=== PATIENT | female | born 1965 | race Caucasian/White ===

== ENCOUNTER → 2016-07-17 | Outpatient (CLI) | payer BC ==
--- NOTE | 2016-07-17 17:28 | CT ---
EXAMINATION TYPE: CT abdomen pelvis w con DATE OF EXAM: 07/17/2016 5:19 PM COMPARISON: 02/14/2015 HISTORY: Right lower quadrant pain with history of hernia repair. CT DLP: 1631 mGycm Automated exposure control for dose reduction was used. TECHNIQUE: Helical acquisition of images was performed from the lung bases through the pelvis. CONTRAST: Performed with Oral Contrast and with IV Contrast, patient injected with 100 mL of Omnipaque 300. FINDINGS: Lung bases are clear. There is a moderate hiatal hernia. There is no pleural effusion. Liver spleen pancreas gallbladder appear normal. Bile ducts are not dilated. There is no adrenal mass . Kidneys show satisfactory contrast opacification. There is no hydronephrosis. There is no retroperi toneal adenopathy. There is no ascites. I see no intestinal wall thickening. There are no dilated loo ps. There is a 3 cm cyst on the right ovary. Bladder distends smoothly. There is no sign of pelvic ly mphadenopathy. There is no evidence of a hernia. I see no bony destructive process. There is no sign of appendicitis. IMPRESSION: THERE IS A MODERATE-SIZED HIATAL HERNIA THAT IS SMALLER THAN OLD EXAM OF 02/14/2015. NO SIGN OF ACUTE ABDOMEN AND PELVIS. THERE IS A RIGHT OVARIAN CYST THAT IS NEW COMPARED TO OLD EXAM.
== END ==
LOC: RADCTMAIN 16:52
PROVIDERS: ATTEND Surgery
DX: K44.9 Diaphragmatic hernia without obstruction or gangrene (principal); N83.201 Unspecified ovarian cyst, right side
CPT/HCPCS: 74177; Q9967

== ENCOUNTER → 2016-07-22 | Outpatient (CLI) | payer BC ==
--- NOTE | 2016-07-23 08:10 | US ---
EXAMINATION TYPE: US thyroid st tissue head/neck DATE OF EXAM: 07/22/2016 4:17 PM COMPARISON: NONE CLINICAL HISTORY: E04.9 ENLARGED THYROID. Enlarged thyroid/ pt has no known thyroid problems at this time GLAND SIZE: Right Lobe: 3.8 x 1.0 x 1.5 cm Overall Parenchyma: homogenous Left Lobe: 3.3 x 1.0 x 1.7 cm Overall Parenchyma: homogeneous Isthmus Thickness: 0.2 cm NODULES RIGHT: # of nodules measured on right: 0 LEFT: # of nodules measured on left: 0 ISTHMUS: # of nodules measured in the isthmus: 0 Bilateral neck scanned, no evidence of lymphadenopathy/ Thyroid appeared wnl bilaterally IMPRESSION: 1. Normal thyroid ultrasound.
== END | disposition home or self-care (01) ==
LOC: RADUSWWP 16:04
PROVIDERS: ATTEND Obstetrics & Gynecology
DX: E04.9 Nontoxic goiter, unspecified (principal)
CPT/HCPCS: 76536

== ENCOUNTER → 2016-07-27 | Outpatient (CLI) | payer BC ==
--- NOTE | 2016-07-27 10:52 | FL ---
EXAMINATION TYPE: FL barium swallow DATE OF EXAM: 07/27/2016 10:45 AM LIMITED ESOPHAGRAM: CLINICAL HISTORY: History of Miki fundoplication surgery September 2015 presents with recurrent epigast yudith pain. TECHNIQUE: Limited esophagram is performed utilizing 20-30 oz of barium. A total of 24 seconds of fl uoroscopic time was utilized during procedure. COMPARISON: Upper GI study September 17, [address] abdomen and pelvis July 17, 2016.. FINDINGS: The patient drank oral contrast. There is good flow of contrast along the course of the esophagus. There is good flow of contrast through diaphragmatic hiatus into stomach. There is howev er recurrent small to moderate-sized fixed hiatal hernia above the diaphragmatic hiatus. No contrast extravasation to suggest leak is seen. IMPRESSION: New Recurrent small to moderate size hiatal hernia.
== END | disposition home or self-care (01) ==
LOC: RADFLWHC 10:00
PROVIDERS: ATTEND Surgery
DX: K44.9 Diaphragmatic hernia without obstruction or gangrene (principal); K21.9 Gastro-esophageal reflux disease without esophagitis
CPT/HCPCS: 74220

== ENCOUNTER 2016-08-06 11:01 | Day surgery (SDC) | payer BC ==
[2016-08-03 14:49] VITALS: BMI 42.0
[~2016-08-06 11:01] MED LIST: LACTATED RINGERS 1,000 ML IV SCH; LIDOCAINE 1% 20 ML VIAL (10MG/ML) FOR IV START INTRADERMA PRN
[2016-08-06 12:21] VITALS: RESP 18; TEMP 97.8
[2016-08-06] MEDS ORDERED: MIDAZOLAM 2 MG/2 ML VIAL ONE (12:33)
[2016-08-06] MEDS ORDERED: fentaNYL (PF) 50 MCG/ML 2 ML AMP ONE (12:33)
[2016-08-06] MEDS ORDERED: PROPOFOL 10 MG/ML 20 ML VIAL IV ONE (12:33)
--- NOTE | 2016-08-06 12:35 | P.GSHP ---
History of Present Illness H&P Date: 08/06/16 Chief Complaint: GERD This a 51-year-old female who presents today for EGD. She's had issues with dysphagia. Her recent esophagram was reviewed and she the patient may have a small recurrent hiatal hernia versus a slipped fundal plication. - Constitutional Constitutional: Reports as per HPI Past Medical History Past Medical History: CVA/TIA, GERD/Reflux, Hyperlipidemia Additional Past Medical History / Comment(s): hx TIA-no effects, heart murmer, occ palpitations, hx hiatal hernia, History of Any Multi-Drug Resistant Organisms: None Reported Past Surgical History: Breast Surgery, Section, Hernia Repair Additional Past Surgical History / Comment(s): 09/17/15 Laparoscopic pawel fundoplication, dylan breast reduction, strangulated hernia around intestine Past Anesthesia/Blood Transfusion Reactions: No Reported Reaction Past Psychological History: No Psychological Hx Reported Additional Psychological History / Comment(s): . Smoking Status: Never smoker Past Alcohol Use History: Rare Past Drug Use History: None Reported - Past Family History Mother Family Medical History: No Reported History Additional Family Medical History / Comment(s): . Father Additional Family Medical History / Comment(s): Father has "heart problems". He is 81 yrs old. Medications and Allergies Home Medications Medication Instructions Recorded Confirmed Type Multivitamins, Thera [Multivitamin 1 tab PO DAILY 08/16/15 08/03/16 History (formulary)] Atorvastatin [Lipitor] 40 mg PO HS 08/03/16 08/03/16 History Allergies Allergy/AdvReac Type Severity Reaction Status Date / Time No Known Allergies Allergy Verified 08/03/16 14:41 Surgical - Exam Vital Signs Temp Pulse Resp BP Pulse Ox 97.8 F 83 18 138/74 98 08/06/16 12:20 08/06/16 12:20 08/06/16 12:20 08/06/16 12:20 08/06/16 12:20 - General well developed, no distress - Eyes PERRL - ENT normal pinna - Neck no masses - Respiratory normal expansion - Cardiovascular Rhythm: regular - Abdomen Abdomen: soft, non tender Assessment and Plan Plan: GERD, dysphagia. We'll perform EGD.
--- NOTE | 2016-08-06 12:42 | P.OP ---
Date of Procedure: 08/06/16 Preoperative Diagnosis: . GERD Dysphagia Postoperative Diagnosis: Mild antral gastritis Slipped fundal plication Procedure(s) Performed: EGD Anesthesia: MAC Surgeon: Esa Luis Pathology: other (Antrum) Condition: stable Disposition: PACU Description of Procedure: The patient's placed on the endoscopy table in the lateral position. She received IV sedation. The gastroscope some placed oropharynx and passed into the esophagus and into the stomach. The scope was then placed through the pylorus. In the first and second portion of the duodenum appeared normal. Scope was then brought back and the antrum and this appeared mildly inflamed. A biopsy was performed. Scope was then retroflexed remainder stomach appeared normal. The patient's fundoplication appeared to be displaced and around the fundal portion of the stomach. There was a small gastric pouch above the plication. The GI GE junction was at 40 cm. There is no evidence of a hiatal hernia. The distal esophagus appeared minimally inflamed the proximal esophagus appeared normal. Scope was withdrawn for patient.
[2016-08-06 13:17] VITALS: BP 133/86; PULSE 80
== END 2016-08-06 13:40 | disposition home or self-care (01) ==
LOC: ORWHC2ENDO 11:01
PROVIDERS: ATTEND Surgery
DX: K29.50 Unspecified chronic gastritis without bleeding (principal); K91.89 Other postprocedural complications and disorders of digestive system; K21.9 Gastro-esophageal reflux disease without esophagitis; R13.10 Dysphagia, unspecified; Z79.899 Other long term (current) drug therapy; Z79.82 Long term (current) use of aspirin; Z86.73 Personal history of transient ischemic attack (TIA), and cerebral infarction without residual deficits
CPT/HCPCS: 81025; 88305; 88342; 43239; J2250; J3010; J2704

== ENCOUNTER 2016-09-04 08:34 | Inpatient (IN) | payer BC ==
[2016-08-27 08:29] VITALS: BMI 43.0
[~2016-09-04 08:34] MED LIST changes: +DEXAMETHASONE SOD PHOSPHATE 10 MG/ML 1 ML VIAL IV ONE; +HEPARIN SODIUM,PORCINE 5,000 UNIT/ML 1 ML VIAL SQ ONE; -LIDOCAINE 1% 20 ML VIAL (10MG/ML) FOR IV START INTRADERMA PRN; +ONDANSETRON 4 MG/2 ML VIAL IVP ONE; +ceFAZolin 2 GM in SODIUM CHLORIDE 0.9% 100 ML IVPB ONE
--- NOTE | 2016-09-04 08:52 | P.GSHP ---
History of Present Illness H&P Date: 09/04/16 Chief Complaint: Dysphagia, recurrent hiatal hernia 's is a 51-year-old female who presents today for laparoscopic repair of hiatal hernia. She's had issues with dysphagia. Her recent esophagram shows evidence of a hiatal hernia. - Constitutional Constitutional: Reports as per HPI Past Medical History Past Medical History: CVA/TIA, GERD/Reflux, GI Bleed, Hyperlipidemia Additional Past Medical History / Comment(s): hiatal hernia with pawel fundloplication, -internal hemorrhoids and a few diverticuli, TIA, NO RESIDUAL EFFECTS History of Any Multi-Drug Resistant Organisms: None Reported Past Surgical History: Breast Surgery, Section, Hernia Repair Additional Past Surgical History / Comment(s): 09/17/15 Laparoscopic pawel fundoplication, breast reduction, 2008 strangulated hernia around intestine, recent EGD, colonoscopy. Past Anesthesia/Blood Transfusion Reactions: No Reported Reaction Past Psychological History: No Psychological Hx Reported Additional Psychological History / Comment(s): . Smoking Status: Never smoker Past Alcohol Use History: Rare Past Drug Use History: None Reported - Past Family History Mother Family Medical History: No Reported History Additional Family Medical History / Comment(s): . Father Additional Family Medical History / Comment(s): Father has "heart problems". He is 81 yrs old. Medications and Allergies Home Medications Medication Instructions Recorded Confirmed Type Multivitamins, Thera [Multivitamin 1 tab PO DAILY 08/16/15 08/27/16 History (formulary)] Atorvastatin [Lipitor] 40 mg PO HS 08/03/16 08/27/16 History Allergies Allergy/AdvReac Type Severity Reaction Status Date / Time No Known Allergies Allergy Verified 08/27/16 08:26 Surgical - Exam - General well developed, no distress - Eyes PERRL - ENT normal pinna - Neck no masses - Respiratory normal expansion - Cardiovascular Rhythm: regular - Abdomen Abdomen: soft, non tender Assessment and Plan Plan: Hiatal hernia. We'll perform laparoscopic repair.
[2016-09-04] MEDS ORDERED: LIDOCAINE 1% 20 ML VIAL (10MG/ML) FOR IV START INTRADERMA ONE (09:00)
[2016-09-04] MEDS ORDERED: fentaNYL (PF) 50 MCG/ML 2 ML AMP ONE (09:13)
[2016-09-04] MEDS ORDERED: MIDAZOLAM 2 MG/2 ML VIAL ONE (09:13)
[2016-09-04] MEDS ORDERED: SUCCINYLCHOLINE CHLORIDE 100 MG/5 ML SYR IV ONE (09:13)
[2016-09-04] MEDS ORDERED: KETOROLAC 30 MG/ML 1 ML VIAL ONE (09:13)
[2016-09-04] MEDS ORDERED: LIDOCAINE 1% INJ 10MG/ML (20 ML MDV) ONE (09:13)
[2016-09-04] MEDS ORDERED: GLYCOPYRROLATE 0.2 MG/ML 2 ML VIAL ONE (09:13)
[2016-09-04] MEDS ORDERED: NEOSTIGMINE 1 MG/ML 10 ML VIAL ONE (09:13)
[2016-09-04] MEDS ORDERED: PROPOFOL 10 MG/ML 20 ML VIAL IV ONE (09:13)
[2016-09-04] MEDS ORDERED: HYDROmorphone (PF) 1 MG/ML ONE (09:13)
[2016-09-04] MEDS ORDERED: ROCURONIUM BROMIDE 10 MG/ML 10 ML VIAL IV ONE (09:13)
[2016-09-04] MEDS ORDERED: BUPIVACAIN-EPI 0.25%-1:200,000 30 ML VIAL SQ ONE (09:40)
[2016-09-04] MEDS ORDERED: METHYLENE BLUE 50 MG/10 ML AMPUL IRRIGATION ONE (10:15)
--- NOTE | 2016-09-04 10:41 | P.OP ---
Date of Procedure: 09/04/16 Preoperative Diagnosis: Dysphagia Recurrent hiatal hernia Postoperative Diagnosis: Dysphagia Recurrent hiatal hernia Procedure(s) Performed: Laparoscopic Harinder fundal plication with mesh repair of hiatal hernia and 180 wrap Implants: Anesthesia: KARRIA Surgeon: Esa Luis Estimated Blood Loss (ml): 10 Pathology: none sent Condition: stable Disposition: PACU Indications for Procedure: Operative Findings: Description of Procedure: The patient's placed the operative table in the supine position. She received general anesthesia. Her abdomen was prepped and draped usual sterile fashion. The patient's placed in dorsal lithotomy position. The skin incision sites were anesthetized 1% local Xylocaine. Using 11 blade the skin was incised in the left. Local area then using a 5 mm optical trocar under direct visitation the perineal cavity was entered and then the abdomen was insufflated and then the laparoscope was then placed back into the perineal cavity. Next a 5 ohmmeter trocar was placed in the right epigastric, right lateral, left lateral and then a 8 mm trocar was placed in the left epigastric position. The left lateral lobe of liver was retracted. The patient appears fundoplication wrap. There was a recurrent hiatal hernia with the fundal plication wrap partially above the diaphragm. This point using the Harmonic scissors the fundal plication Wrap was taken down and then the ann-marie were dissected the right left ann-marie were fully dissected and then the stomach was insufflated with 1000 mL of methylene blue normal saline. There is known to extravasation. The hiatal hernia was then closed using 2-0 Ethibond suture. And then using the bile a [place] mesh the hernia repair was buttressed the mesh was secured with 2-0 Ethibond suture. The fundoplication wrap was converted to 180 wrap. The wrap was secured with 2-0 Ethibond suture. There was no injury seen to the stomach or esophagus. The abdomen was irrigated. The trochars withdrawn. The skin was closed interrupted 3-0 Monocryl suture. Dermabond was applied. Patient sent to recovery in stable condition.
[2016-09-04] MEDS: HYDROmorphone 1 MG/ML 1 ML SYRINGE IVP PRN ×6 (11:30→22:51)
[2016-09-04] MEDS ORDERED: ONDANSETRON 4 MG/2 ML VIAL IVP PRN (15:06)
[2016-09-04] MEDS: D5-0.45% NACL WITH KCL 20MEQ/L 1,000 ML IV SCH (15:07)
--- NOTE | 2016-09-04 15:36 | FL ---
Single contrast esophagram EXAMINATION TYPE: FL esophagus cervic/pharynx DATE OF EXAM: 09/04/2016 3:30 PM COMPARISON: NONE CLINICAL HISTORY: Status post Miki fundoplication The patient ingested contrast without difficulty or delay. Noted are changes of Miki fundoplicatio n. There is no evidence for leak or obstruction. Small amount of residual contrast within the distal esophagus. IMPRESSION: Post-surgical change of Miki fundoplication without evidence for leak or obstruction.
--- NOTE | 2016-09-04 15:56 | P.CONS ---
History of Present Illness - Reason for Consult Consult date: 09/04/16 Medical management - History of Present Illness 51-year-old female with obesity GERD who underwent fundoplication a year ago comes back in for revision. Patient is seen postoperatively denies significant pain. Patient's pain is tolerable denies having significant retching chest pain dizziness headaches blurry vision. Patient has not passed gas yet Patient's past medical history is only hypertension and dyslipidemia Is able to tolerate small amounts of liquid Previous smoker Currently doing well is able to ambulate no other complaints reported Review of Systems All systems: negative (Noted in HPI) Past Medical History Past Medical History: CVA/TIA, GERD/Reflux, GI Bleed, Hyperlipidemia Additional Past Medical History / Comment(s): hiatal hernia with pawel fundloplication, -internal hemorrhoids and a few diverticuli, TIA, NO RESIDUAL EFFECTS History of Any Multi-Drug Resistant Organisms: None Reported Past Surgical History: Breast Surgery, Section, Hernia Repair Additional Past Surgical History / Comment(s): 09/17/15 Laparoscopic pawel fundoplication, breast reduction, 2008 strangulated hernia around intestine, recent EGD, colonoscopy. 08/04/2016: laparoscopic hiatal hernia repair Past Anesthesia/Blood Transfusion Reactions: No Reported Reaction Past Psychological History: No Psychological Hx Reported Additional Psychological History / Comment(s): . Smoking Status: Never smoker Past Alcohol Use History: Rare Past Drug Use History: None Reported - Past Family History Mother Family Medical History: No Reported History Additional Family Medical History / Comment(s): . Father Additional Family Medical History / Comment(s): Father has "heart problems". He is 81 yrs old. Medications and Allergies Home Medications Medication Instructions Recorded Confirmed Type Multivitamins, Thera [Multivitamin 1 tab PO DAILY 08/16/15 09/04/16 History (formulary)] Atorvastatin [Lipitor] 40 mg PO HS 08/03/16 09/04/16 History diphenhydrAMINE [Benadryl] 50 mg PO HS PRN 09/04/16 09/04/16 History Allergies Allergy/AdvReac Type Severity Reaction Status Date / Time No Known Allergies Allergy Verified 09/04/16 12:09 Physical Exam Vitals: Vital Signs Temp Pulse Pulse Pulse Resp BP Pulse Ox 09/04/16 15:53 97.1 F L 87 16 132/82 94 L 09/04/16 15:00 90 16 139/89 96 09/04/16 14:00 92 18 113/73 93 L 09/04/16 13:30 75 16 129/71 94 L 09/04/16 12:55 75 16 126/76 93 L 09/04/16 12:40 70 16 118/61 92 L 09/04/16 12:10 97.7 F 76 18 117/96 96 09/04/16 11:33 87 18 144/73 95 09/04/16 11:15 61 18 144/72 100 09/04/16 11:00 77 16 140/67 100 09/04/16 10:45 74 14 154/66 98 09/04/16 10:41 96.8 F L 67 14 143/69 98 09/04/16 08:57 97.5 F L 80 16 135/83 97 Intake and Output 09/04/16 09/04/16 09/04/16 06:59 14:59 22:59 Intake Total 1330 30 Output Total 5 Balance 1325 30 Intake: IV 1300 Oral 30 30 Output: Estimated Blood Loss 5 Other: Weight 106.594 kg Patient Weight 09/05/16 06:59 Weight 106.594 kg Physical exam Gen. appearance oriented 3 in no distress Neck is supple no JVD Lungs good air entry clear to auscultation no rhonchi or wheezing Heart S1-S2 heard regular rate and rhythm no murmurs appreciated Abdomen appropriate tender to palpation. Trocar sites are noted Neurologically cranial nerves II-12 grossly intact no focal motor or sensory deficits noted Skin no abnormalities appreciated Assessment and Plan Plan: #1 refractory GERD status post fundoplication #2 obesity #3 hypertension. #4 dyslipidemia Plan Continue ongoing care patient is medically stable no further testing is recommended incentive spirometry is encouraged encourage ambulation
[2016-09-04 22:13] VITALS: RESP 18
[2016-09-05] MEDS: D5-0.45% NACL WITH KCL 20MEQ/L 1,000 ML IV SCH (00:19)
[2016-09-05] MEDS: HYDROmorphone 1 MG/ML 1 ML SYRINGE IVP PRN ×4 (00:20→06:52)
[2016-09-05 03:01] VITALS: TEMP 97.4
[2016-09-05 08:39] VITALS: BP 147/78; PULSE 87
[2016-09-05] MEDS ORDERED: ENOXAPARIN 40 MG/0.4 ML SYRINGE SQ SCH (09:00)
--- NOTE | 2016-09-05 11:07 | P.DS ---
Providers Date of admission: 09/04/16 10:41 Expected date of discharge: 09/05/16 Attending physician: Esa Luis Consults: 09/04/16 10:41 Consult Physician Routine Consulting Provider: Irene Espinal Consult Reason/Comments: Medical management Do you want consulting provider notified?: Yes Primary care physician: Adam Connor - Discharge Diagnosis(es) (1) GERD with esophagitis Current Visit: No Status: Acute Hospital Course: The patient presented for revision laparoscopic Harinder fundoplication. She did well and was felt to be stable for discharge postoperative day 1 Pertinent Studies: Barium swallow Procedures: Redo laparoscopic Harinder fundoplication Patient Condition at Discharge: Good Plan - Discharge Summary New Discharge Prescriptions: New Docusate [Colace] 100 mg PO BID #20 capsule HYDROcodone/APAP 7.5-325MG [Crooks 7.5] 1 each PO Q4H PRN #60 tab PRN Reason: Pain No Action Multivitamins, Thera [Multivitamin (formulary)] 1 tab PO DAILY Aspirin 81 mg PO DAILY #30 chewable diphenhydrAMINE [Benadryl] 50 mg PO HS PRN PRN Reason: Insomnia Atorvastatin [Lipitor] 40 mg PO HS Discharge Medication List Multivitamins, Thera [Multivitamin (formulary)] 1 tab PO DAILY 08/16/15 [History ] Aspirin 81 mg PO DAILY #30 chewable 01/06/16 [Rx] Atorvastatin [Lipitor] 40 mg PO HS 09/04/16 [History] Docusate [Colace] 100 mg PO BID #20 capsule 09/04/16 [Rx] HYDROcodone/APAP 7.5-325MG [Crooks 7.5] 1 each PO Q4H PRN #60 tab 09/04/16 [Rx] diphenhydrAMINE [Benadryl] 50 mg PO HS PRN 09/04/16 [History] Follow up Appointment(s)/Referral(s): Esa Luis MD [STAFF PHYSICIAN] - 2 Weeks Patient Instructions/Handouts: Laparoscopic Hiatal Hernia Repair (DC) Activity/Diet/Wound Care/Special Instructions: Follow diet as instructed by standards analyst until recheck with Dr Luis No heavy lifting, nothing strenuous Call office with any fever, chills, increased pain not covered with pain meds, increased redness or drainage from puncture sites. or any concerns. Continue to use Incentive spiromtery at home. May shower not tub baths. Leave steri strips in place until they fall off.
== END 2016-09-05 10:58 | disposition home or self-care (01) | DRG 327 ==
LOC: OR 08:34 → 6PED 10:41 → EDSTATUS 10:45 → OR 17:01
PROVIDERS: ADMIT Surgery; ATTEND Surgery
PROC: 0BUR4JZ (ICD-10-PCS; 2016-09-04)
PROC: 0BUS4JZ (ICD-10-PCS; 2016-09-04)
PROC: 0DV44ZZ Restriction of Esophagogastric Junction, Percutaneous Endoscopic Approach (ICD-10-PCS; principal; 2016-09-04 09:45)
DX: K21.0 Gastro-esophageal reflux disease with esophagitis (principal); Z68.41 Body mass index [BMI] 40.0-44.9, adult; K44.9 Diaphragmatic hernia without obstruction or gangrene; I10 Essential (primary) hypertension; R13.10 Dysphagia, unspecified; E66.9 Obesity, unspecified; E78.5 Hyperlipidemia, unspecified; Z79.899 Other long term (current) drug therapy
CPT/HCPCS: 74210; 81025

== ENCOUNTER → 2016-12-15 | Outpatient (CLI) | payer BC ==
--- NOTE | 2016-12-15 23:30 | PN ---
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 The patient's initial diagnosis was established back in 2016. She decided to hold off on CPAP treatment. She decided to proceed with weight loss. She was unable to lose a whole lot of weight and she remains symptomatic. Based on that, around a month ago she was given a CPAP machine which is an automatic CPAP unit with a minimum pressure of 5 and a maximum pressure of 20. Today she is coming in for a compliancy check. She is feeling great and she reports great clinical response to her CPAP treatment. She is reporting marked improvement in her sleep quality. Her sleep is improved and she is waking up much more alert and awake and refreshed during the day. No hypersomnia or sleepiness during the day. No snoring while on the CPAP therapy. Her sleep has become very restful. Based on the compliance data over the past 30 days, the patient has used her CPAP every night. Her CPAP use for more than 4 hours is 100%. Her average CPAP use is around 6.8 hours per night. Leak factor is 1 L/minute and her AHI while on treatment is down to 0.1. P90 pressure is at 12, and she is using AirFit P10 nose pillows. Weight has been stable. No other complaints otherwise. She wants to continue with the treatment. PHYSICAL EXAMINATION: BP 135/84, pulse 75, respiration 16, temperature 97.5. Weight is 241. Saturation 97% on room air. GENERAL APPEARANCE: Calm, comfortable. HEENT: Bilateral tonsillar enlargement. Mallampati class 3. There is no goiter or neck mass. LUNGS: Clear to auscultation. Heart sounds are regular rate and rhythm. Normal S1, S2. Abdomen is soft, nontender. No organomegaly. EXTREMITIES: No edema. No cyanosis or clubbing. IMPRESSION: 1. Obstructive sleep apnea, symptomatic, mild in severity with an AHI of 8. 2. Chronic hypersomnia, improved with CPAP therapy. 3. Sleep fragmentation, improved with CPAP therapy. 4. Obesity. PLAN: 1. Encourage weight loss. 2. ENT evaluation for bilateral tonsillar enlargement. 3. Continue CPAP therapy, as the treatment has been successful and the patient is compliant. 4. See me back in a year's time in followup, earlier if needed. MMODL / IJN: [id number] /
== END ==
LOC: SLEEP 15:07
PROVIDERS: ATTEND Internal Medicine Critical Care Medicine
DX: G47.33 Obstructive sleep apnea (adult) (pediatric) (principal); G47.10 Hypersomnia, unspecified; E66.9 Obesity, unspecified

== ENCOUNTER → 2016-12-18 | Outpatient (CLI) | payer BC ==
--- NOTE | 2016-12-21 10:06 | MM ---
Reason for exam: screening (asymptomatic). Last mammogram was performed 1 year and 3 months ago. History: Family history of breast cancer in maternal aunt and breast cancer in maternal cousin at age 43. Reductions of both breasts, 2001. Took hormonal contraceptives for 10 years beginning at age 18. Physical Findings: A clinical breast exam by your physician is recommended on an annual basis and results should be correlated with mammographic findings. MG 3D Screening Mammo W/Cad Bilateral CC and MLO view(s) were taken. Prior study comparison: September 10, 2015, bilateral MG screening mammo w CAD. July 30, 2014, bilateral MG screening mammo w CAD. July 06, 2013, CAD bilateral diagnostic mammogram. There are scattered fibroglandular densities. Focal asymmetry stable anterior right breast. No significant changes when compared with prior studies. ASSESSMENT: Negative, BI-RAD 1 RECOMMENDATION: Routine screening mammogram of both breasts in 1 year.
== END | disposition home or self-care (01) ==
LOC: RADMAMWWP 12:31
PROVIDERS: ATTEND Obstetrics & Gynecology
DX: Z12.31 Encounter for screening mammogram for malignant neoplasm of breast (principal)
CPT/HCPCS: 77063; G0202

== ENCOUNTER → 2017-12-22 | Outpatient (CLI) | payer BC ==
--- NOTE | 2017-12-23 15:24 | MM ---
Reason for exam: screening (asymptomatic). Last mammogram was performed 1 year ago. History: Family history of breast cancer in maternal aunt and breast cancer in maternal cousin at age 43. Reductions of both breasts, 2001. Took hormonal contraceptives for 10 years beginning at age 18. Physical Findings: A clinical breast exam by your physician is recommended on an annual basis and results should be correlated with mammographic findings. MG 3D Screening Mammo W/Cad Bilateral CC and MLO view(s) were taken. Prior study comparison: December 18, 2016, bilateral MG 3d screening mammo w/cad. September 10, 2015, bilateral MG screening mammo w CAD. There are scattered fibroglandular densities. There is no discrete abnormality. No significant changes when compared with prior studies. ASSESSMENT: Negative, BI-RAD 1 RECOMMENDATION: Routine screening mammogram of both breasts in 1 year.
== END | disposition home or self-care (01) ==
LOC: RADMAMWWP 14:33
PROVIDERS: ATTEND Obstetrics & Gynecology
DX: Z12.31 Encounter for screening mammogram for malignant neoplasm of breast (principal); Z80.3 Family history of malignant neoplasm of breast
CPT/HCPCS: 77063; 77067

== ENCOUNTER → 2018-06-28 | Outpatient (CLI) | payer BC ==
--- NOTE | 2018-06-28 22:14 | PN ---
PROGRESS NOTE Sharon is 53, coming in for followup regarding ALKA treatment. The patient is very well known to me. The patient has an AHI of 8.8, consistent with mild disease. Never the less, she has been very much dependent on her CPAP unit. She has been very compliant. She uses an APAP, minimum pressure of 5 and maximum pressure of 20. She is still benefitting from the treatment. Sleep quality is good. She wakes up refreshed and alert during the day. Her CPAP use for on average has been 7.3 hours per night. Her CPAP use for more than 4 hours 100%. Her average pressure is at 12.8. Leak factor 5 L/minute. AHI 1 treatment is down to 0.1. She has no complaints. I noted that she has gained weight. She used to weigh 241 pounds and currently she is up to 255. She is using AirFit P 10 medium-size nose pillows. REVIEW OF SYSTEM: 14-point review of system was done. Positive for weight gain. No other complaints otherwise for now. She is under extreme amount of stress as the patient is taking care of her mom who has multiple other medical problems and comorbidities. No chest pain. No heartburn. No shortness of breath at nighttime. No altered mentation. [place] score is at 3. PHYSICAL EXAMINATION: BP is 143/94, pulse 84, respirations 16, temperature 98.1, saturation 97% on room air. Height is 5 feet, 4 inches, weight is 255, BMI 43.7, general appearance: Calm and comfortable. Head is atraumatic, normocephalic. NECK: Supple. There is no JVD. No goiter or neck masses. Mallampati class IV. LUNGS: Clear to auscultation. HEART: Sounds regular rate and rhythm. Normal S1, S2. No S3. No murmurs. ABDOMEN: Soft, nontender. No organomegaly. EXTREMITIES: No edema. No cyanosis or clubbing. NEUROLOGIC: Alert and oriented x3. There is no focal neurological deficits. PSYCHIATRIC: Negative for anxiety or depression. SKIN: Negative for any wounds or ulceration. IMPRESSION: 1. Obstructive sleep apnea, mild in severity. AHI 8.8, currently on APAP. 2. Hypersomnia, improved. 3. Obesity with interval weight gain. Current weight is up to 255 with a body mass index of 43.7. PLAN: 1. Continue APAP therapy similar setting. 2. Keep the patient on AirFit P10 medium-size nose mask. 3. Encourage weight loss. 4. Implement good sleep hygiene measures. 5. See me back in a year's time earlier if needed. She is stable. Treatment was successful. No need for any further adjustments. MMODL / IJN: [id number] /
== END ==
LOC: SLEEP 13:11
PROVIDERS: ATTEND Internal Medicine Critical Care Medicine
DX: G47.33 Obstructive sleep apnea (adult) (pediatric) (principal); E66.9 Obesity, unspecified; Z99.89 Dependence on other enabling machines and devices; Z68.41 Body mass index [BMI] 40.0-44.9, adult

== ENCOUNTER → 2019-01-25 | Outpatient (CLI) | payer BC ==
--- NOTE | 2019-01-26 12:15 | MM ---
Reason for exam: screening (asymptomatic). Last mammogram was performed 1 year and 1 month ago. History: Family history of breast cancer in maternal aunt and breast cancer in maternal cousin at age 43. Reductions of both breasts, 2001. Took hormonal contraceptives for 10 years beginning at age 18. Physical Findings: A clinical breast exam by your physician is recommended on an annual basis and results should be correlated with mammographic findings. MG 3D Screening Mammo W/Cad Bilateral CC and MLO view(s) were taken. Prior study comparison: December 22, 2017, bilateral MG 3d screening mammo w/cad. December 18, 2016, bilateral MG 3d screening mammo w/cad. Focal asymmetry right breast, stable. No significant changes when compared with prior studies. ASSESSMENT: Benign, BI-RAD 2 RECOMMENDATION: Routine screening mammogram of both breasts in 1 year.
== END | disposition home or self-care (01) ==
LOC: RADMAMWWP 15:24
PROVIDERS: ATTEND Obstetrics & Gynecology
DX: Z12.31 Encounter for screening mammogram for malignant neoplasm of breast (principal); Z80.3 Family history of malignant neoplasm of breast
CPT/HCPCS: 77063; 77067

== ENCOUNTER → 2019-09-11 | Outpatient (CLI) | payer BC ==
--- NOTE | 2019-09-12 08:16 | US ---
EXAMINATION TYPE: US carotid duplex BILAT DATE OF EXAM: 09/11/2019 COMPARISON: NONE CLINICAL HISTORY: E66.9 Obesity, E78.5 hyperlipidemia Z86.73. EXAM MEASUREMENTS: RIGHT: Peak Systolic Velocity (PSV) cm/sec ----- Right CCA: 75.1 ----- Right ICA: 88.3 ----- Right ECA: 102.6 ICA/CCA ratio: 1.2 RIGHT: End Diastole cm/sec ----- Right CCA: 26.7 ----- Right ICA: 44.3 ----- Right ECA: 12.4 LEFT: Peak Systolic Velocity (PSV) cm/sec ----- Left CCA: 77.9 ----- Left ICA: 82.3 ----- Left ECA: 90.1 ICA/CCA ratio: 1.1 LEFT: End Diastole cm/sec ----- Left CCA: 26.4 ----- Left ICA: 41.3 ----- Left ECA: 8.1 VERTEBRALS (direction of flow): Right Vertebral: Antegrade Left Vertebral: Antegrade Rhythm: Normal Minimal plaque, no significant velocity elevations. IMPRESSION: Mild degree of grayscale atheromatous plaquing with no sonographically evident hemodynam ically significant stenosis within either visualized carotid arterial system. Criteria for Assigning % of Stenosis / Diameter reduction (Estimation based on the indirect measurements of the internal carotid artery velocities (ICA PSV). 1. Normal (no stenosis)=ICA PSV < 125 cm/s: ratio < 2.0: ICA EDV<40 cm/s. 2. Less than 50% stenosis=ICA PSV < 125 cm/s: ratio < 2.0: ICA EDV<40 cm/s. 3. 50 to 69% stenosis=ICA PSV of 125 to 230 cm/s: ration 2.0 ? 4.0: ICA EDV 40-100 cm/s. 4. Greater than 70% stenosis to near occlusion= ICA PSV > 230 cm/s: ratio > 4.0: ICA EDV > 100 cm/s. 5. Near occlusion= ICA PSV velocities may be low or undetectable: variable ratio and ICA EDV. 6. Total occlusion=unable to detect flow.
== END | disposition home or self-care (01) ==
LOC: RADUSWWP 15:53
PROVIDERS: ATTEND Family Medicine
DX: I70.8 Atherosclerosis of other arteries (principal); E66.9 Obesity, unspecified; Z86.73 Personal history of transient ischemic attack (TIA), and cerebral infarction without residual deficits
CPT/HCPCS: 93880

== ENCOUNTER → 2020-01-31 | Outpatient (CLI) | payer BC ==
--- NOTE | 2020-02-02 11:11 | MM ---
Reason for exam: screening (asymptomatic). Last mammogram was performed 1 year ago. History: Family history of breast cancer in maternal aunt and breast cancer in maternal cousin at age 43. Reductions of both breasts, 2001. Took hormonal contraceptives for 10 years beginning at age 18. Taking progesterone for 6 months beginning at age 54. Physical Findings: A clinical breast exam by your physician is recommended on an annual basis and results should be correlated with mammographic findings. MG 3D Screening Mammo W/Cad Bilateral CC and MLO view(s) were taken. Prior study comparison: January 25, 2019, bilateral MG 3d screening mammo w/cad. December 22, 2017, bilateral MG 3d screening mammo w/cad. There are scattered fibroglandular densities. There is chronic nodularity in the right breast. No significant changes when compared with prior studies. ASSESSMENT: Negative, BI-RAD 1 RECOMMENDATION: Routine screening mammogram of both breasts in 1 year.
== END | disposition home or self-care (01) ==
LOC: RADMAMWWP 10:48
PROVIDERS: ATTEND Obstetrics & Gynecology
DX: Z12.31 Encounter for screening mammogram for malignant neoplasm of breast (principal); Z80.3 Family history of malignant neoplasm of breast
CPT/HCPCS: 77063; 77067

== ENCOUNTER → 2021-03-11 | Outpatient (CLI) | payer BC ==
--- NOTE | 2021-03-11 16:05 | PN ---
PROGRESS NOTE SLEEP CENTER PROGRESS NOTE: I am seeing this patient for a followup regarding obstructive sleep apnea. This is her follow-up check. The patient is known to have obstructive sleep apnea with an AHI of 8.8 and the patient continues to lose weight; over the past year or so, the patient has lost approximately 30 pounds. Current weight is around 236. She continues to be on APAP mode at the pressure of minimum of 5, maximum of 20. Based on the compliance data that was collected over the past 30 days, the patient has been averaging around 7.7 hours of CPAP use per night and CPAP use for more than 4 hours is 100%. Average pressure delivered by the machine is 11.8. Leak is on the order of 4 L/minute and her AHI is down to 0.2. She is doing well. She has no specific complaints. She is using the AirFit P10 medium-size nasal pillows. No other significant complaints otherwise for now. She wants to continue the same treatment. She wants to lose more weight. She is hoping that with weight loss she will be able to get rid of the CPAP, knowing that she has a mild component of obstructive sleep apnea at baseline. MEDICATION: Medications includes Lipitor 40 mg p.o. daily, progesterone 200 mg p.o. daily, aspirin 81 mg p.o. daily, iron tablet 65 mg p.o. daily, vitamin D3 2000 international units daily, multivitamin 1 tablet a day. REVIEW OF SYSTEMS: Fourteen-point review of system was done. Positive findings are mentioned in the history of present illness. PHYSICAL EXAMINATION: BP is 136/79, pulse 84, respirations 16, temperature 98.3, saturation 97% on room air. Height is 5 feet 3 inches, weight is 236, BMI 41.1. GENERAL APPEARANCE: Calm, comfortable. HEAD: Atraumatic, normocephalic. Neck is supple. No JVD. No goiter or neck masses. Mallampati class IV. LUNGS: Clear to auscultation. Heart sounds are regular rate and rhythm. Normal S1, S2. No S3, S4. No murmurs. ABDOMEN: Soft, nontender. No organomegaly. EXTREMITIES: No edema. No cyanosis or clubbing. IMPRESSION: 1. Symptomatic obstructive sleep apnea. AHI of 8.8. The patient continues to lose weight. She continues to be compliant with CPAP therapy and she has no active issues for now. She is committed to losing more weight, as the patient has lost a considerable amount of weight since her last evaluation. Compliance data was checked. The numbers are looking good. The patient remains compliant. 2. Obesity with interval weight loss. 3. Hypersomnia, improved. PLAN: 1. Renew the supplies. The patient will be kept on AirFit P10 nasal pillow medium size, and refills will be given. 2. Drop the humidity level down to 1. 3. Drop the temperature of the tubing down to 60 degrees. 4. See me back in a year's time in followup. Treatment is successful for now. MMODL / IJN: [id number] /
== END ==
LOC: SLEEP 14:15
PROVIDERS: ATTEND Internal Medicine Critical Care Medicine
DX: G47.33 Obstructive sleep apnea (adult) (pediatric) (principal); E66.9 Obesity, unspecified; Z99.89 Dependence on other enabling machines and devices; Z68.41 Body mass index [BMI] 40.0-44.9, adult

== ENCOUNTER → 2021-04-17 | Outpatient (CLI) | payer BC ==
--- NOTE | 2021-04-21 11:34 | MM ---
Reason for exam: screening (asymptomatic). Last mammogram was performed 1 year and 3 months ago. History: Patient is postmenopausal. Family history of breast cancer in maternal aunt and breast cancer in maternal cousin at age 43. Reductions of both breasts, 2001. Took hormonal contraceptives for 10 years beginning at age 18. Taking progesterone for 6 months beginning at age 54. Physical Findings: A clinical breast exam by your physician is recommended on an annual basis and results should be correlated with mammographic findings. MG 3D Screening Mammo W/Cad Bilateral CC and MLO view(s) were taken. Prior study comparison: January 31, 2020, bilateral MG 3d screening mammo w/cad. January 25, 2019, bilateral MG 3d screening mammo w/cad. The breast tissue is almost entirely fat. Stable 11 o'clock focal asymmetry right breast. No significant changes when compared with prior studies. ASSESSMENT: Negative, BI-RAD 1 RECOMMENDATION: Routine screening mammogram of both breasts in 1 year.
== END | disposition home or self-care (01) ==
LOC: RADMAMWWP 10:35
PROVIDERS: ATTEND Obstetrics & Gynecology
DX: Z12.31 Encounter for screening mammogram for malignant neoplasm of breast (principal); Z78.0 Asymptomatic menopausal state; Z80.3 Family history of malignant neoplasm of breast
CPT/HCPCS: 77063; 77067

== ENCOUNTER → 2022-03-10 | Outpatient (CLI) | payer BC ==
--- NOTE | 2022-03-10 15:29 | P.PN ---
Progress Note - Text Progress Note Date: 03/10/22 A 56-year-old female patient coming in for an annual checkup regarding her obstructive sleep apnea. The patient has chronic mild obstructive sleep apnea with an AHI of 8.8 and the patient has been treated with CPAP therapy. The patient has a functioning APAP machine which is set at a minimum pressure of 5 and a maximum pressure of 20. The patient is also using the airfit P10 nasal pillows review size. She was infected with Covid 19 approximately 3 months ago. Noted the patient is on the vaccinated and boosted. Her symptoms were mild. She was having issues with palpitation. She was started on metoprolol 12.5 mg a day and she was taken off the progesterone and she is already feeling better and a cardiac consultation has subsided. Her weight is up to 248 pounds from 236 approximately year ago and as such there is approximately 12 pound weight gain. In terms of CPAP therapy, the patient remains on APAP mode. Her machine is functional. She is using the machine every night and she is achieving more than 4 hours 100% of the time. She is averaging about 6.6 hours of APAP use per night and average pressure delivered by the machines around 12.7 cm of water with a leak of 10 L/m and had AHI is down to 0.1. The patient's humidity level is set at 1. She has no other new complaints otherwise. No hypersomnia or sleepiness during the day. No headaches. No chest pain. No shortness of breath. No palpitations. BP is 142/86 with a pulse of 69 and a temperature of 97.1 with a pulse ox of 98% on room air oxygen. Weight is 246. Moran score is at 4. Gen. appearance morbidly obese, comfortable, not in acute distress The patient appeared well nourished and normally developed. Vital signs as documented. Head exam is unremarkable. No scleral icterus or corneal arcus noted. Neck is without jugular venous distension, thyromegaly, or carotid bruit s. Carotid upstrokes are brisk bilaterally. Lungs are clear to auscultation and percussion. Cardiac exam reveals the PMI to be normally sized and situated. Rhythm is regular. First and second heart sounds normal. No murmurs, rubs or gallops. Abdominal exam reveals normal bowel sounds, no masses, no organomegaly and no aortic enlargement. Extremities are nonedematous and both femoral and pedal pulses are normal.Examination of the skin revealed no evidence of significant rashes, suspicious appearing nevi or other concerning lesions.Neurologically, the patient is awake and alert and the patient does not have any focal neurological deficit. Cranial nerves are essentially intact. Assessment Obstructive sleep apnea, mild at baseline with an AHI of 8.8 currently on APAP treatment, treatment is successful. Obesity with a weight of 246 pounds Hypersomnia, improved History of Covid 19 infection, recovered. Noted the patient has been vaccinated and boosted. Hyperlipidemia Palpitations attributed to medication and the patient is currently on metoprolol and the patient was taken off progesterone tablets. Postmenopausal hot flashes Plan Continue APAP therapy the same level of pressures. Refills on her supplies were given. Encourage weight loss. Sleep hygiene measures of good. Treatment is successful. We'll see her back in one year.
== END ==
LOC: SLEEP 13:15
PROVIDERS: ATTEND Internal Medicine Critical Care Medicine
DX: Z53.9 Procedure and treatment not carried out, unspecified reason (principal)

== ENCOUNTER 2022-04-17 09:35 | Day surgery (SDC) | payer BC ==
[2022-04-14 15:08] VITALS: BMI 43.9
[~2022-04-17 09:35] MED LIST changes: -DEXAMETHASONE SOD PHOSPHATE 10 MG/ML 1 ML VIAL IV ONE; -HEPARIN SODIUM,PORCINE 5,000 UNIT/ML 1 ML VIAL SQ ONE; -ONDANSETRON 4 MG/2 ML VIAL IVP ONE; -ceFAZolin 2 GM in SODIUM CHLORIDE 0.9% 100 ML IVPB ONE
[2022-04-17 10:35] VITALS: TEMP 97.6
[2022-04-17] MEDS ORDERED: PROPOFOL 10 MG/ML 20 ML VIAL IV ONE (11:16)
--- NOTE | 2022-04-17 11:34 | P.PCN ---
Date of Procedure: 04/17/22 Procedure(s) Performed: BRIEF HISTORY: Patient is a 56-year-old pleasant white female scheduled for an elective colonoscopy as a part of evaluation of intermittent rectal bleeding for the last 6 months duration. PROCEDURE PERFORMED: Colonoscopy. PREOPERATIVE DIAGNOSIS: Intermittent rectal bleeding. IV sedation per Anesthesia. PROCEDURE: After informed consent was obtained, the patient, was brought into the endoscopy unit. IV sedation was administered by Anesthesia under continuous monitoring. Digital rectal examination was normal. Initially the Olympus CF-160 flexible video colonoscope was then inserted in the rectum, gradually advanced into the cecum without any difficulty. Careful examination was performed as the scope was gradually being withdrawn. Ileocecal valve and the appendiceal orifice were visualized and appeared normal. Prep was excellent. Mucosa of the cecum, ascending colon, transverse colon, descending colon, sigmoid colon, and rectum appeared normal. Scattered sigmoid diverticulosis. Retroflexion was performed in the rectum and small internal were seen. The patient tolerated the procedure well. IMPRESSION: Normal-appearing colon from rectum to cecum no evidence of colorectal neoplasia . Scattered sigmoidal diverticulosis Small internal hemorrhoids RECOMMENDATIONS: Findings of this examination were discussed with the patient as well as a family. She was advised to be a high-fiber and avoid straining and constipation..Recommend repeat colonoscopy in 10 years.
[2022-04-17 11:52] VITALS: BP 139/82; PULSE 60; RESP 16
== END 2022-04-17 12:09 | disposition home or self-care (01) ==
LOC: ORWHC2ENDO 09:35
PROVIDERS: ATTEND Internal Medicine Gastroenterology
DX: K62.5 Hemorrhage of anus and rectum (principal); K57.30 Diverticulosis of large intestine without perforation or abscess without bleeding; K64.8 Other hemorrhoids; I10 Essential (primary) hypertension; G47.33 Obstructive sleep apnea (adult) (pediatric); K21.9 Gastro-esophageal reflux disease without esophagitis; Z79.899 Other long term (current) drug therapy
CPT/HCPCS: 81025; 45378; J2704

== ENCOUNTER → 2022-04-20 | Outpatient (CLI) | payer BC ==
--- NOTE | 2022-04-21 09:09 | MM ---
Reason for Exam: Screening (asymptomatic). Last screening mammogram was performed 12 month(s) ago. Patient History: Menarche at age 13. First Full-Term at age 28. Postmenopausal. Progesterone for 6 months from age 54 until age 56. Hormonal Contraceptives for 10 years from age 18 until age 28. 2001, Bilateral Reduction. Maternal cousin had breast cancer, age 43. Maternal aunt had breast cancer. Risk Values: Laura 5 year model risk: 1.4%. NCI Lifetime model risk: 10.1%. Prior Study Comparison: 01/25/2019 Bilateral Screening Mammogram, [facility]. 01/31/2020 Bilateral Screening Mammogram, [facility]. 04/17/2021 Bilateral Screening Mammogram, [facility]. Tissue Density: The breast tissue is almost entirely fat. Findings: Analyzed By CAD. There is no suspicious group of microcalcifications or new suspicious mass in either breast. Stable focal asymmetry in the right breast at 11:00. Overall Assessment: Benign, BI-RAD 2 Management: Screening Mammogram of both breasts in 1 year. A clinical breast exam by your physician is recommended on an annual basis and results should be correlated with mammographic findings. Electronically signed and approved by: Man Mcmillan D.O.
== END | disposition home or self-care (01) ==
LOC: RADMAMWWP 09:47
PROVIDERS: ATTEND Obstetrics & Gynecology
DX: Z12.31 Encounter for screening mammogram for malignant neoplasm of breast (principal); Z78.0 Asymptomatic menopausal state; Z80.3 Family history of malignant neoplasm of breast
CPT/HCPCS: 77063; 77067

== ENCOUNTER → 2023-05-25 | Outpatient (CLI) | payer BC ==
--- NOTE | 2023-05-27 20:44 | MM ---
Reason for Exam: Screening (asymptomatic). Last mammogram was performed 1 year(s) and 1 month(s) ago. Patient History: Menarche at age 13. First Full-Term at age 28. Postmenopausal. Progesterone for 6 months from age 54 until age 56. Hormonal Contraceptives for 10 years from age 18 until age 28. 2001, Bilateral Reduction. Maternal cousin had breast cancer, age 43. Maternal aunt had breast cancer, age 50. Risk Values: Laura 5 year model risk: 1.5%. NCI Lifetime model risk: 9.7%. Prior Study Comparison: 01/31/2020 Bilateral Screening Mammogram, [facility]. 04/17/2021 Bilateral Screening Mammogram, [facility]. 04/20/2022 Bilateral MG 3D screening mammo w/cad, [facility]. Tissue Density: The breast tissue is almost entirely fat. Findings: Analyzed By CAD. Central asymmetric density right cc view remains unchanged. There is no suspicious group of microcalcifications or new suspicious mass in either breast. Overall Assessment: Benign, BI-RAD 2 Management: Screening Mammogram of both breasts in 1 year. . Patient should continue monthly self-breast exams. A clinical breast exam by your physician is recommended on an annual basis. This exam should not preclude additional follow-up of suspicious palpable abnormalities. Note on Luara scores and lifetime risk: 1. A Laura score greater than 3% is considered moderate risk. If this is the case, consider specialist referral to assess eligibility for a risk reducing agent. 2. If overall lifetime risk for the development of breast cancer is 20% or higher, the patient may qualify for future screening with alternating mammogram and breast MRI. Electronically signed and approved by: Shamar Howard M.D. Radiologist
== END | disposition home or self-care (01) ==
LOC: RADMAMWWP 13:53
PROVIDERS: ATTEND Obstetrics & Gynecology
DX: Z12.31 Encounter for screening mammogram for malignant neoplasm of breast (principal); Z80.3 Family history of malignant neoplasm of breast; Z78.0 Asymptomatic menopausal state
CPT/HCPCS: 77063; 77067

== ENCOUNTER → 2023-05-31 | Outpatient (CLI) | payer BC ==
[2023-05-31 18:27] LABS: Basophils % (A) 1.2 %; Eosinophils # (A) 0.12 X 10*3/uL (0.04-0.35); Eosinophils % (A) 1.4 %; HCT 45.9 % (37.2-46.3); Lymphocytes # (A) 1.84 X 10*3/uL (0.90-5.00); Lymphocytes % (A) 21.4 %; MCH 32.4 pg (27.0-32.0); MCHC 32.7 g/dL (32.0-37.0); MCV 99.1 FL (80.0-97.0); Mean Platelet Volume 10.5 FL (9.5-12.2); Monocytes # (A) 0.62 X 10*3/uL (0.20-1.00); Monocytes % (A) 7.2 %; NRBC Per 100 WBC 0 X 10*3/uL (0.00-0.01); Neutrophils # (A) 5.89 X 10*3/uL (1.80-7.70); Neutrophils % (A) 68.6 %; Platelet Count 386 X 10*3/uL (140-440); RBC 4.63 X 10*6/uL (4.10-5.20); RDW 12.8 % (11.5-14.5); WBC 8.59 X 10*3/uL (4.50-10.00)
== END | disposition home or self-care (01) ==
LOC: LABPAT 13:14
PROVIDERS: ATTEND Obstetrics & Gynecology
DX: Z01.818 Encounter for other preprocedural examination (principal); I10 Essential (primary) hypertension; N84.0 Polyp of corpus uteri
CPT/HCPCS: 36415; 85025; 93005

== ENCOUNTER → 2023-06-08 | Day surgery (SDC) | payer BC ==
[~2023-06-08] MED LIST changes: +HYDROmorphone 0.5 MG/0.5 ML SYRINGE IVP PRN; +KETOROLAC 30 MG/ML 1 ML VIAL ONE; -LACTATED RINGERS 1,000 ML IV SCH; +LIDOCAINE 1% (10MG/ML) FOR IV START INTRADERMA PRN; +LIDOCAINE 1% INJ 10MG/ML (20 ML MDV) ONE; +MIDAZOLAM 2 MG/2 ML VIAL IV PRN; +MIDAZOLAM 2 MG/2 ML VIAL ONE; +PROPOFOL 10 MG/ML 20 ML VIAL IV ONE; +Pre Op ABX Message 1 EACH MISC MISCELLANE ONE; +fentaNYL (PF) 50 MCG/ML 2 ML AMP ONE
[2023-06-08] MEDS: LACTATED RINGERS 1,000 ML IV SCH (06:43)
[2023-06-08] MEDS: ONDANSETRON 4 MG/2 ML VIAL IVP ONE (06:53)
[2023-06-08] MEDS: DEXAMETHASONE SOD PHOSPHATE 4 MG/ML 1 ML VIAL IV ONE (06:53)
[2023-06-08] MEDS: FAMOTIDINE 20 MG/2 ML VIAL IVP ONE (06:57)
[2023-06-08] MEDS: LIDOCAINE 1%-EPI 1:100,000 50 ML VIAL SQ ONE (08:01)
--- NOTE | 2023-06-08 08:19 | P.OP ---
Date of Procedure: 06/08/23 Preoperative Diagnosis: Postmenopausal bleeding Endocervical polyp Postoperative Diagnosis: Postmenopausal bleeding Procedure(s) Performed: Diagnostic hysteroscopy and D&C Anesthesia: MAC Surgeon: Kassy Duran Estimated Blood Loss (ml): 0 IV fluids (ml): 400 Urine output (ml): 50 Pathology: other (Endometrial curettings) Condition: stable Disposition: PACU Indications for Procedure: Findings of endocervical polyp in the office setting as well as by ultrasound in the setting of postmenopausal bleeding Operative Findings: Cervix with no evidence of lesions or polyp visually. On diagnostic hyste roscopy the entire endocervical canal is surveyed with no evidence of polyp. The uterine cavity is smooth and atrophic with no evidence of lesions. The right and left tubal ostia are easily visualized. No evidence of endometrial polyp. Description of Procedure: The patient was met in the preoperative holding area and all questions were answered, she taken the operating room where anesthetic was administered without incident. She was in position prepped and draped in the dorsal high lithotomy position. Appropriate timeout procedure was undertaken. Exam under anesthetic was undertaken. The bladder was drained for 50 mL of clear urine. A weighted speculum was placed in the vagina and the cervix was visualized. No visible polyp was noted. Cervix was grasped anteriorly with a single-tooth tenaculum and a paracervical block with lidocaine plus epinephrine was placed. The uterus was sounded to 8 cm. The cervix was sequentially dilated to allow for passage of the diagnostic hysteroscope. The hysteroscope was introduced on and the uterus was surveyed. The cavity was pale and atrophic with no evidence of intracavitary lesions. The length of the cervical canal was inspected with the hysteroscope and no evidence of polyp was noted. The hysteroscope was removed and the cervix was further dilated to allow for passage of the smallest sharp banjo curet. The uterine cavity was curettaged with scant tissue obtained consistent with atrophy seen on hysteroscopy. The cervix was observed following removal of the tenaculum and curet and no active bleeding was noted. Instruments removed from the vagina. The patient was awoken from anesthetic and transported to recovery in good condition. All counts reported to me as correct.
[2023-06-08 08:34] VITALS: TEMP 97.4
[2023-06-08 10:22] VITALS: BP 132/81; PULSE 67; RESP 12
== END | disposition home or self-care (01) ==
LOC: OR 06:08
PROVIDERS: ATTEND Obstetrics & Gynecology
DX: N85.8 Other specified noninflammatory disorders of uterus (principal); I10 Essential (primary) hypertension; E78.5 Hyperlipidemia, unspecified; G47.33 Obstructive sleep apnea (adult) (pediatric); K21.9 Gastro-esophageal reflux disease without esophagitis; M19.90 Unspecified osteoarthritis, unspecified site; Z86.73 Personal history of transient ischemic attack (TIA), and cerebral infarction without residual deficits; Z79.899 Other long term (current) drug therapy; Z98.890 Other specified postprocedural states
CPT/HCPCS: 88305; 58558; J2250; J1100; J2405; J2001; J3010; J1885; J3490; J2704

== ENCOUNTER → 2024-06-05 | Outpatient (CLI) | payer BC ==
[2024-06-05 18:43] LABS: Basophils # (A) 0.07 X 10*3/uL (0.00-0.10); Basophils % (A) 0.7 %; Eosinophils # (A) 0.18 X 10*3/uL (0.04-0.35); Eosinophils % (A) 1.8 %; HCT 45.1 % (37.2-46.3); HGB 14.4 g/dL (12.0-15.0); Lymphocytes # (A) 2.12 X 10*3/uL (0.90-5.00); Lymphocytes % (A) 21.1 %; MCH 31.9 pg (27.0-32.0); MCHC 31.9 g/dL (32.0-37.0); MCV 99.8 FL (80.0-97.0); Mean Platelet Volume 11.1 FL (9.5-12.2); Monocytes # (A) 0.67 X 10*3/uL (0.20-1.00); Monocytes % (A) 6.7 %; NRBC Per 100 WBC 0 X 10*3/uL (0.00-0.01); Neutrophils # (A) 6.96 X 10*3/uL (1.80-7.70); Neutrophils % (A) 69.4 %; Platelet Count 379 X 10*3/uL (140-440); RBC 4.52 X 10*6/uL (4.10-5.20); RDW 12.6 % (11.5-14.5); WBC 10.03 X 10*3/uL (4.50-10.00)
== END | disposition home or self-care (01) ==
LOC: LABWHC1 15:15
PROVIDERS: ATTEND Family Medicine
DX: I10 Essential (primary) hypertension (principal)
CPT/HCPCS: 36415; 85025

== ENCOUNTER → 2024-07-05 | Outpatient (CLI) | payer BC ==
--- NOTE | 2024-07-05 12:07 | MM ---
Reason for Exam: Screening (asymptomatic). Last mammogram was performed 1 year(s) and 2 month(s) ago. Patient History: Menarche at age 13. First Full-Term at age 28. Postmenopausal. Progesterone for 6 months from age 54 until age 56. Hormonal Contraceptives for 10 years from age 18 until age 28. 2001, Bilateral Reduction. Maternal cousin had breast cancer, age 43. Maternal aunt had breast cancer, age 50. Risk Values: Laura 5 year model risk: 1.6%. NCI Lifetime model risk: 9.5%. Prior Study Comparison: 04/17/2021 Bilateral Screening Mammogram, [facility]. 04/20/2022 Bilateral MG 3D screening mammo w/cad, [facility]. 05/25/2023 Bilateral MG 3D screening mammo w/cad, [facility]. Tissue Density: There are scattered areas of fibroglandular density. Findings: Analyzed By CAD. There is no suspicious group of microcalcifications or new suspicious mass in either breast. Overall Assessment: Negative, BI-RAD 1 Management: Screening Mammogram of both breasts in 1 year. . Patient should continue monthly self-breast exams. A clinical breast exam by your physician is recommended on an annual basis. This exam should not preclude additional follow-up of suspicious palpable abnormalities. Note on Laura scores and lifetime risk: 1. A Laura score greater than 3% is considered moderate risk. If this is the case, consider specialist referral to assess eligibility for a risk reducing agent. 2. If overall lifetime risk for the development of breast cancer is 20% or higher, the patient may qualify for future screening with alternating mammogram and breast MRI. [facility], , 07/05/2024 12:04 PM. Electronically signed and approved by: Milo Grande M.D. Radiologis
== END | disposition home or self-care (01) ==
LOC: RADMAMWWP 09:48
PROVIDERS: ATTEND Obstetrics & Gynecology
DX: Z12.31 Encounter for screening mammogram for malignant neoplasm of breast (principal); R92.323 Mammographic fibroglandular density, bilateral breasts; Z78.0 Asymptomatic menopausal state; Z80.3 Family history of malignant neoplasm of breast; Z92.0 Personal history of contraception
CPT/HCPCS: 77063; 77067

== ENCOUNTER → 2024-09-12 | Outpatient (CLI) | payer BC ==
[2024-09-12 13:40] VITALS: BP 134/77; PULSE 68; RESP 16; TEMP 97.8
--- NOTE | 2024-09-12 18:38 | P.PN ---
Progress Note - Text Progress Note Date: 09/12/24 59-year-old female patient coming in for routine check regarding her obstructive sleep apnea. The patient's last evaluation was in March 2022. The patient is known to have mild ALKA with an AHI of 8.8 and the patient has received successful CPAP therapy over the years. Her machine seems to be quite noisy and the treatment seems to be less effective over the past few months. The patient is considering updating her CPAP unit. Nevertheless, I was able to retrieve the compliance data from the machine. Based on her 30-day compliance data accumulated, the patient utilized her machine on average of 4.5 hours per night and her utilization of the machine for more than 4 hours at 17/30 and her 95th percentile pressure is 11.3 with a leak of 10 L/min and her AHI is down to 0.3. She is committed to treatment. She states that she sleeping on the couch and this has affected the number of hours that she is planning on her CPAP unit every night. However, she would like to become more compliant and demonstrate more hours on her machine. She is currently as above. Weight is down from 246- 233. Her treatment is successful and the patient is losing weight. She is currently using a fullface mask. No cardiovascular complications. No angina. No palpitations. No stroke. No congestion heart failure. No hypersomnia or sleepiness during the day. No snoring while on CPAP therapy. No other complaints otherwise for now. Current Chilo score is 1 BP is 132/77 with a pulse of 68 and respiration of 16 with a temperature of 97.8. Pulse ox 95% on room air oxygen. Weight is 233 and BMI is 41.9 The patient appeared well nourished and normally developed. Vital signs as documented. Head exam is unremarkable. No scleral icterus or corneal arcus noted. Neck is without jugular venous distension, thyromegaly, or carotid bruits. Carotid upstrokes are brisk bilaterally. Lungs are clear to auscultation and percussion. Cardiac exam reveals the PMI to be normally sized and situated. Rhythm is regular. First and second heart sounds normal. No murmurs, rubs or gallops. Abdominal exam reveals normal bowel sounds, no masses, no organomegaly and no aortic enlargement. Extremities are nonedematous and both femoral and pedal pulses are normal. Examination of the skin revealed no evidence of significant rashes, suspicious appearing nevi or other concerning lesions. Neurologically, the patient is awake and alert and the patient does not have any focal neurological deficit. Cranial nerves are essentially intact. Medications include metoprolol 12.5 mg p.o. twice daily, Lipitor 40 mg p.o. daily, aspirin 81 mg p.o. daily, iron tablets, Prevacid 15 mg p.o. daily and Zepbound every week 2.5 mg. Assessment Obstructive sleep apnea, mild in severity at baseline with an AHI of 8.8 and the patient has been successful CPAP therapy and the patient remains on a APAP mode pressures of 5/20 cm of water. Machine is to be updated. Obesity with successful weight loss while being at bedbound. Her weight is down to 233 and the patient is carrying a body mass index of 41.9 Hypersomnia, recovered Hyperlipidemia History of hot flashes related to postmenopausal state, recovered Plan Will offer the patient a ResMed 11 CPAP unit and will utilize the same pressure settings of 5/20 cm of water. Should be kept on a fullface mask. Continue as above. Continue further weight loss. Treatment is successful. No major hypersomnia or sleepiness during the day and the patient is committed to long- term CPAP therapy. The patient was seen back for a compliance to check in 30 to 90 days after obtaining her new CPAP unit. No other issues for now. No other complaints.
== END ==
LOC: 3 N SLEEP 13:00
PROVIDERS: ATTEND Internal Medicine Critical Care Medicine
DX: G47.33 Obstructive sleep apnea (adult) (pediatric) (principal); E66.9 Obesity, unspecified; E78.5 Hyperlipidemia, unspecified; Z78.0 Asymptomatic menopausal state; Z68.41 Body mass index [BMI] 40.0-44.9, adult; Z99.89 Dependence on other enabling machines and devices
CPT/HCPCS: 99212